=== PATIENT | male | born 1995 | race Caucasian/White ===

== ENCOUNTER 2020-07-07 20:37 | Emergency (ER) | payer OTHER ==
[~2020-07-07] VITALS: Ht 162.6 cm; Wt 74.8 kg
[2020-07-07 20:42] VITALS: BP 143/82
--- NOTE | 2020-07-07 20:42 | NUR ---
TO BED AMBULATORY
--- NOTE | 2020-07-07 20:50 | NUR ---
PATIENT PRESENTS TO ED WITH C/O BURNING UPON URINATION . DENIES N/V/D; SKIN IS PINK/WARM/DRY; AAOX4 WITH EVEN AND STEADY GAIT; LUNGS CLEAR BL PATIENT STATES PAIN OF 8/10 AT THIS TIME; VSS; PATIENT POSITIONED FOR COMFORT; HOB ELEVATED; BEDRAILS UP X2; BED DOWN. ER MD MADE AWARE OF PT STATUS.
--- NOTE | 2020-07-07 21:03 | NUR ---
ERMD AT BEDSIDE EVALUATING PATIENT.
[2020-07-07] MEDS ORDERED: cefTRIAXone 500 MG in LIDOCAINE MPF 1% 1 ML IM ONE (21:10)
[2020-07-07] MEDS ORDERED: DOXY100C9 PO (21:13)
[2020-07-07] MEDS ORDERED: PYR100 PO (21:13)
[2020-07-07] MEDS ORDERED: cefTRIAXone 500 MG VIAL ONE (21:18)
[2020-07-07] MEDS ORDERED: LIDOCAINE MPF 1% 5 ML ONE (21:18)
[2020-07-07 21:30] VITALS: BP 128/82
--- NOTE | 2020-07-07 21:30 | NUR ---
Patient discharged with v/s stable. Written and verbal after care instructions given and explained. Patient alert, oriented and verbalized understanding of instructions. Ambulatory with steady gait. All questions addressed prior to discharge. ID band removed. Patient advised to follow up with PMD. Rx of DOXYCYCLINE & PYRIDIUM given. Patient educated on indication of medication including possible reaction and side effects. Opportunity to ask questions provided and answered.
== END 2020-07-07 21:30 | disposition home or self-care (01) ==
LOC: MED 20:37
DX: A64 Unspecified sexually transmitted disease (principal); R30.0 Dysuria; Z79.899 Other long term (current) drug therapy
CPT/HCPCS: 36415; 87491; 96372; 99283; J0696; J2001

== ENCOUNTER 2022-07-07 16:27 | Emergency (ER) | payer OTHER ==
[~2022-07-07] VITALS: Ht 162.6 cm; Wt 72.6 kg
[~2022-07-07 16:27] MED LIST: DOXY-690 PO; PYR100 PO
[2022-07-07 16:33] VITALS: BP 151/93
[2022-07-07] MEDS ORDERED: CEPH-588 PO (17:16)
[2022-07-07] MEDS ORDERED: IBUP-2213 PO (17:54)
== END 2022-07-07 18:00 | disposition home or self-care (01) ==
LOC: MED 16:27
DX: S60.221A Contusion of right hand, initial encounter (principal); X58.XXXA Exposure to other specified factors, initial encounter; Y93.89 Activity, other specified; Y92.89 Other specified places as the place of occurrence of the external cause; Y99.8 Other external cause status
CPT/HCPCS: 73130; 99284; Q0092